=== PATIENT | female | born 1990 | race Caucasian/White ===

== ENCOUNTER 2022-06-13 16:05 | Emergency (ER) | payer MEDICAID, SELFPAY ==
[2022-06-13 16:55] VITALS: BP 126/64; PULSE 113; RESP 19; TEMP 38.2; O2SAT 97; BMI 24.6
[2022-06-13 17:03] LABS: Apearance,Urine Cloudy (Clear); Color,Urine Dark Yellow (Yellow)
[2022-06-13 17:04] LABS: Bilirubin,Urine Negative (Negative); Blood, Urine 1+ (Negative); Glucose,Urine (UA) Negative (Negative); Ketones,Urine TRACE (Negative); PH,Urine 6.5 (5.0-8.5); Protein,Urine 1+ (Negative); Specific Gravity, Urine 1.015 (1.005-1.030); UTC Leukocyte Esterase,Urine 2+ (Negative); UTC Nitrate,Urine Positive (Negative); UTC Pregnancy Test, Urine Negative (Negative); Urobilinogen,Urine 1 EU/dl (0.2)
--- NOTE | 2022-06-13 17:08 | HMH.EDUTC ---
[place] Disposition Clinical Impression: Urinary complications Disposition: Home, Self-Care Condition on Discharge: Fair Instructions: DI for Diarrhea and Traveler's Diarrhea -- Adult, DI for Diarrhea and Traveler's Diarrhea -- Child, DI for Nausea -- Adult, DI for Nausea -- Child Additional Instructions: Follow-up with your primary care provider within 72 hours of this visit to the emergency department for repeat urinalysis and ensure improvement in symptoms. Take cefdinir twice daily as prescribed for 10 days. Tylenol and ibuprofen for symptomatic pain relief, Zofran for symptomatic nausea relief. If you have inability to tolerate food or drink by mouth, new or worsening symptoms, or any other concerning signs or symptoms, return to the emergency department for further evaluation. Prescriptions: Cefdinir [Omnicef 300mg Capsule] 300 mg PO BID #28 cap Transmission Status: Received by [facility] #[id number] Ondansetron [Zofran 4mg ODT] 4 mg PO TIDP PRN #10 tab PRN Reason: Nausea And Vomiting Transmission Status: Received by [facility] #[id number] Referrals: Provider,Referral, [Primary Care Provider] - Time of Disposition: 17:13 Medical Decision Making - [place] Inquiry Pt receiving controlled substance: No [place] was queried for this patient: No Vital Signs: 06/13/22 16:55 06/13/22 17:26 06/13/22 17:30 Temperature 100.8 F H 100.1 F H Temperature Source Oral Oral Pulse Rate 107 H Pulse Rate [Left Brachial] 113 H 102 H Respiratory Rate 19 17 Blood Pressure 105/66 L Blood Pressure [Left Arm] 126/64 104/70 L Blood Pressure Mean 79 Blood Pressure Mean [Left Arm] 84 81 Blood Pressure Source Blood Pressure Source [Left Arm] Automatic Cuff Blood Pressure Position Blood Pressure Position [Left Arm] Sitting 02 Sat by Pulse Oximetry 97 97 97 Oxygen Delivery Method Room Air 06/13/22 18:59 Temperature 99.1 F Temperature Source Oral Pulse Rate 106 H Pulse Rate [Left Brachial] Respiratory Rate 18 Blood Pressure 109/68 L Blood Pressure [Left Arm] Blood Pressure Mean Blood Pressure Mean [Left Arm] Blood Pressure Source Automatic Cuff Blood Pressure Source [Left Arm] Blood Pressure Position Supine Blood Pressure Position [Left Arm] 02 Sat by Pulse Oximetry Oxygen Delivery Method Room Air - Lab Data Lab results reviewed: Yes: I reviewed the patient's lab results. Lab Results 06/13/22 16:55: Urine Color Dark yellow, Urine Appearance Cloudy, Urine pH 6.5, Ur Specific [place] 1.015, Urine Protein 1+, Urine Glucose (UA) Negative, Urine Ketones Trace, Urine Blood 1+, Urine Nitrate Positive A, Urine Bilirubin Negative, Urine Urobilinogen 1, Ur Leukocyte Esterase 2+ A, [facility] Negative 06/13/22 16:58: Urine Color Yellow, Urine Appearance Clear, Urine pH 6.5, Ur Specific [place] 1.015, Urine Protein 1+, Urine Glucose (UA) Negative, Urine Ketones Negative, Urine Blood 1+, Urine Nitrate Positive, Urine Bilirubin Negative, Urine Urobilinogen 1.0, Ur Leukocyte Esterase 2+ A, Urine RBC 3-5, Urine WBC 10-20, Ur Squamous Epith Cells 3-5, Urine Bacteria 3+ Orders (Tests/Meds): ED MEDICATIONS Discontinued Medications Generic Name Dose Route Start Last Admin Trade Name Freq PRN Reason Stop Dose Admin Acetaminophen 1,000 mg 06/13/22 18:04 06/13/22 18:53 Acetaminophen 500mg Tab PO 06/13/22 18:05 1,000 mg ONCE ONE Administration Cefdinir 300 mg 06/14/22 18:03 Cefdinir 300mg Capsule PO 06/14/22 18:04 ONCE ONE Ondansetron HCl 4 mg 06/13/22 18:04 06/13/22 18:52 Ondansetron 4mg Odt SL 06/13/22 18:05 4 mg ONCE ONE Administration ORDERS Category Date Time Status Urine Culture Stat Micro 06/13/22 16:58 Received Medical Decision Narrative: Due to patient symptoms including fever, chills, kidney pain and N/V discussed with patient and recommended transfer to the ED for further work up and evaluation and she agreed Called ED
[2022-06-13 17:26] VITALS: BP 104/70; PULSE 102; RESP 17; TEMP 37.8; O2SAT 97; BMI 24.7
[2022-06-13 17:26] LABS: Microscopic, Urine URINE MICROSCOPIC (MICROSCOPIC)
[2022-06-13 17:30] VITALS: BP 105/66; PULSE 107; O2SAT 97
[2022-06-13 17:31] LABS: Appearance,Urine CLEAR (Clear); Bilirubin,Urine Negative (Negative); Blood, Urine 1+ (Negative); Color,Urine YELLOW (Yellow); Glucose,Urine (UA) Negative (Negative); Ketones,Urine Negative (Negative); Leukocyte Esterase,Urine 2+ (Negative); Nitrate,Urine POSITIVE (Negative); PH,Urine 6.5 (5.0-8.5); Protein,Urine 1+ (Negative); Specific Gravity, Urine 1.015 (1.005-1.030)
[2022-06-13 17:51] LABS: Bacteria,Urine 3+ /lpf
--- NOTE | 2022-06-13 18:20 | HMH.EDGENADL ---
[place] Disposition Clinical Impression: Urinary complications Disposition: Home, Self-Care Condition on Discharge: Fair Additional Instructions: Follow-up with your primary care provider within 72 hours of this visit to the emergency department for repeat urinalysis and ensure improvement in symptoms. Take cefdinir twice daily as prescribed for 10 days. Tylenol and ibuprofen for symptomatic pain relief, Zofran for symptomatic nausea relief. If you have inability to tolerate food or drink by mouth, new or worsening symptoms, or any other concerning signs or symptoms, return to the emergency department for further evaluation. Prescriptions: Cefdinir [Omnicef 300mg Capsule] 300 mg PO BID #28 cap Transmission Status: Pending to [facility] #[id number] Ondansetron [Zofran 4mg ODT] 4 mg PO TIDP PRN #10 tab PRN Reason: Nausea And Vomiting Transmission Status: Pending to [facility] #[id number] Referrals: Provider,Referral, [Primary Care Provider] - - Critical Care Critical Care Time: No Attestation: On 06/13/22, the high probability of a clinically significant, sudden or life threatening deterioration of the following system(s) required my full and direct attention, intervention and personal management. The time I documented below is in addition to time spent performing reported procedures but includes the following listed in this critical care notation. Medical Decision Making - [place] Inquiry Pt receiving controlled substance: No Vital Signs: 06/13/22 16:55 06/13/22 17:26 06/13/22 17:30 Temperature 100.8 F H 100.1 F H Temperature Source Oral Oral Pulse Rate 107 H Pulse Rate [Left Brachial] 113 H 102 H Respiratory Rate 19 17 Blood Pressure 105/66 L Blood Pressure [Left Arm] 126/64 104/70 L Blood Pressure Mean 79 Blood Pressure Mean [Left Arm] 84 81 Blood Pressure Source [Left Arm] Automatic Cuff Blood Pressure Position [Left Arm] Sitting 02 Sat by Pulse Oximetry 97 97 97 Oxygen Delivery Method Room Air - Lab Data Lab Results 06/13/22 16:55: Urine Color Dark yellow, Urine Appearance Cloudy, Urine pH 6.5, Ur Specific [place] 1.015, Urine Protein 1+, Urine Glucose (UA) Negative, Urine Ketones Trace, Urine Blood 1+, Urine Nitrate Positive A, Urine Bilirubin Negative, Urine Urobilinogen 1, Ur Leukocyte Esterase 2+ A, [facility] Negative 06/13/22 16:58: Urine Color Yellow, Urine Appearance Clear, Urine pH 6.5, Ur Specific [place] 1.015, Urine Protein 1+, Urine Glucose (UA) Negative, Urine Ketones Negative, Urine Blood 1+, Urine Nitrate Positive, Urine Bilirubin Negative, Urine Urobilinogen 1.0, Ur Leukocyte Esterase 2+ A, Urine RBC 3-5, Urine WBC 10-20, Ur Squamous Epith Cells 3-5, Urine Bacteria 3+ Orders (Tests/Meds): ED MEDICATIONS Generic Name Dose Route Start Last Admin Trade Name Freq PRN Reason Stop Dose Admin Cefdinir 300 mg 06/14/22 18:03 Cefdinir 300mg Capsule PO 06/14/22 18:04 ONCE ONE Discontinued Medications Generic Name Dose Route Start Last Admin Trade Name Freq PRN Reason Stop Dose Admin Acetaminophen 1,000 mg 06/13/22 18:04 06/13/22 18:53 Acetaminophen 500mg Tab PO 06/13/22 18:05 1,000 mg ONCE ONE Administration Ondansetron HCl 4 mg 06/13/22 18:04 06/13/22 18:52 Ondansetron 4mg Odt SL 06/13/22 18:05 4 mg ONCE ONE Administration ORDERS Category Date Time Status Urine Culture Stat Micro 06/13/22 16:58 Received Medical Decision Narrative: Is a 31-year-old female with recent history of UTI who is presenting with flank pain. On arrival, patient hemodynamically stable, alert, oriented, moving all extremities spontaneously, pupils equal and reactive to light, GCS 15. Differential includes pyelonephritis, urinary tract infection, nephrolithiasis, aortic pathology, appendicitis, cholecystitis, pancreatitis, among others. Work-up significant for urinalysis with blood, protein, white cells, bacteria conc
--- NOTE | 2022-06-13 18:24 | PC.NURSE ---
ABBEY KING at speaking with patient
[2022-06-13 18:59] VITALS: BP 109/68; PULSE 106; RESP 18; TEMP 37.3; O2SAT 98
== END 2022-06-13 19:00 | disposition home or self-care (01) ==
LOC: UTC 17:13 → ER 17:17
PROVIDERS: Nurse Practitioner; Emergency Provider Emergency Medicine
DX: R10.9 Unspecified abdominal pain (principal); R50.9 Fever, unspecified; R11.2 Nausea with vomiting, unspecified; Z87.440 Personal history of urinary (tract) infections
CPT/HCPCS: 81001; 81003; 81025; 87086; 87088; 87186; 99283